=== PATIENT | female | born 1975 | race Two or more races ===

== ENCOUNTER 2023-11-22 07:09 | Outpatient (CLI) | payer OTHER | END 2023-11-22 07:11 | disposition home or self-care (01) | LOC: NUCLEAR 07:09 | PROVIDERS: ATTEND Internal Medicine Hematology & Oncology | DX: E04.2 Nontoxic multinodular goiter (principal); E03.8 Other specified hypothyroidism; C73 Malignant neoplasm of thyroid gland ==